=== PATIENT | female | born 1955 | race Caucasian/White ===

== ENCOUNTER 2021-05-12 00:34 | Outpatient (CLI) | payer MEDICARE | END 2021-05-12 00:35 | disposition critical access hospital (66) | LOC: EMS 00:34 | DX: R42 Dizziness and giddiness (principal); M62.89 Other specified disorders of muscle; R19.7 Diarrhea, unspecified | CPT/HCPCS: A0425; A0427 ==

== ENCOUNTER 2021-05-12 01:08 | Emergency (ER) | payer MEDICARE, OTHER ==
[2021-05-12] MEDS ORDERED: SODIUM CHLORIDE 0.9% 1,000 ML IV STA (02:15)
[2021-05-12 02:51] LABS: BASOPHILS # (AUTO) 0.1 10^3/uL (0.0-0.1); BASOPHILS % (AUTO) 0.7 %; EOSINOPHILS # (AUTO) 0.1 10^3/uL (0.0-0.7); EOSINOPHILS % (AUTO) 0.8 %; HGB - HEMOGLOBIN 12.8 g/dL (12.0-16.0); LYMPHOCYTES # (AUTO) 1.6 10^3/uL (1.5-3.5); LYMPHOCYTES % (AUTO) 17.3 %; MEAN CORPUSCULAR HEMOGLOBIN 30.3 pg (27.0-31.0); MEAN CORPUSCULAR HGB CONC 33.7 g/dL (32.0-36.0); MEAN CORPUSCULAR VOLUME 89.8 fL (81.0-99.0); MONOCYTES # (AUTO) 0.7 10^3/uL (0.0-1.0); MONOCYTES % (AUTO) 7.8 %; NEUTROPHILS # (AUTO) 6.5 10^3/uL (1.5-6.6); NEUTROPHILS % (AUTO) 73.2 %; PLT - PLATELET COUNT 298 10^3/uL (130-450); RED BLOOD COUNT 4.23 10^6/uL (4.20-5.40); RED CELL DISTRIBUTION WIDTH 12.8 % (12.0-15.0); WHITE BLOOD COUNT 8.9 x10^3/uL (4.8-10.8)
[2021-05-12 03:09] LABS: ALBUMIN/GLOBULIN RATIO 1.5 (1.0-2.2); BILIRUBIN,TOTAL 0.8 mg/dL (0.2-1.0); CALCIUM 8.9 mg/dL (8.5-10.3); CREATININE 0.7 mg/dL (0.4-1.0); MAGNESIUM 2.3 mg/dL (1.7-2.8); POTASSIUM 3.1 mmol/L (3.5-5.0); TOTAL PROTEIN 6.7 g/dL (6.7-8.2)
[2021-05-12] MEDS ORDERED: POTASSIUM CHLORIDE 10 MEQ CAPSULE PO STA (03:30)
--- NOTE | 2021-05-12 03:31 | ED Physician Documentation ---
PD HPI ALTERED MENTAL STATUS - Stated complaint Stated Complaint: MED REACTION, DIZZY - Chief complaint Chief Complaint: Neuro - History obtained from History obtained from: Patient, EMS - History of Present Illness Timing - onset: Today Timing - details: Abrupt onset, Still present, Waxing and waning Quality / character: Other (feeling of lightheaded without vertigo, and some muscle cramps in arms and legs, mild tingling. She feels it is side effect of Sertraline started 3 weeks ago at half dose and increased to full dose 2 weeks ago.) Associated symptoms: No: Fever, Headache, Stiff neck, Dyspnea, NVD Contributing factors: Recent med change. No: Recent illness, Intoxicated Basline status: Alert and oriented X 3, Ambulatory Similar symptoms before: Has not had sx before Recently seen: Clinic (3 weeks ago) Review of Systems Constitutional: denies: Fever, Chills Nose: denies: Rhinorrhea / runny nose, Congestion Throat: denies: Sore throat Cardiac: denies: Chest pain / pressure Respiratory: denies: Cough GI: reports: Nausea. denies: Abdominal Pain, Vomiting, Diarrhea Skin: denies: Rash, Lesions Musculoskeletal: denies: Neck pain, Back pain Neurologic: denies: Focal weakness, Near syncope (but did feeling lightheaded) PD PAST MEDICAL HISTORY - Past Medical History Past Medical History: Yes Cardiovascular: None Respiratory: Asthma Endocrine/Autoimmune: HyPOthyroidism GI: Diverticulitis Psych: Depression - Past Surgical History Past Surgical History: Yes - Present Medications Home Medications: Ambulatory Orders Medication Instructions Recorded Confirmed Budesonide [Pulmicort] 2 puffs IH DAILY 04/18/14 05/12/21 Levothyroxine Sodium 50 mcg PO DAILY 04/18/14 05/12/21 Salmeterol Xinafoate [Serevent 2 puffs IH DAILY 04/18/14 05/12/21 Diskus] Potassium Citrate [Potassium 10 meq PO DAILY #14 05/12/21 Citrate ER] Sertraline [Zoloft] 50 mg PO DAILY 05/12/21 05/12/21 - Allergies Allergies/Adverse Reactions: Allergies Allergy/AdvReac Type Severity Reaction Status Date / Time azithromycin Allergy Severe Hives Verified 05/12/21 01:53 Latex, Natural Rubber Allergy Mild Rash Verified 05/12/21 01:53 erythromycin base AdvReac Severe Respiratory Verified 04/18/14 01:57 [Erythromycin Base] - Social History Does the pt smoke?: No Smoking Status: Never smoker Does the pt drink ETOH?: No Does the pt have substance abuse?: No - Immunizations Immunizations are current?: Yes - POLST Patient has POLST: No PD ED PE NORMAL - Vitals Vital signs reviewed: Yes - General General: Alert and oriented X 3, No acute distress, Well developed/nourished - HEENT HEENT: Moist mucous membranes, Pharynx benign - Neck Neck: Supple, no meningeal sign, No adenopathy - Cardiac Cardiac: RRR, No murmur - Respiratory Respiratory: Clear bilaterally - Abdomen Abdomen: Soft, Non tender - Derm Derm: Normal color, Warm and dry - Extremities Extremities: Normal ROM s pain, No edema, No calf tenderness / cord - Neuro Neuro: Alert and oriented X 3, No motor deficit, Normal speech Eye Opening: Spontaneous Motor: Obeys Commands Verbal: Oriented GCS Score: 15 - Psych Psych: Normal mood Results - Vitals Vitals: Vital Signs - 24 hr 05/12/21 05/12/21 05/12/21 01:10 01:30 02:30 Temperature 36.9 C Heart Rate 66 66 58 L Respiratory 16 16 14 Rate Blood Pressure 189/78 H 167/75 H 153/66 H O2 Saturation 98 99 05/12/21 05/12/21 03:00 03:57 Temperature 36.6 C Heart Rate 61 69 Respiratory 17 18 Rate Blood Pressure 153/66 H 156/71 H O2 Saturation 100 100 Oxygen O2 Source Room air - Labs Labs: Laboratory Tests 05/12/21 05/12/21 02:45 02:45 WBC 8.9 RBC 4.23 Hgb 12.8 Hct 38.0 MCV 89.8 MCH 30.3 MCHC 33.7 RDW 12.8 Plt Count 298 MPV 9.0 Neut # (Auto) 6.5 Lymph # (Auto) 1.6 Braxton # (Auto) 0.7 Eos # (Auto) 0.1 Baso # (Auto) 0.1 Absolute Nucleated RBC 0.00 Nucleated RBC % 0.0 Sodium 137 Potassium 3.1 L Chloride 102 Carbon Dioxide 27 Anion Gap 8.0 BUN 16 Creatinine 0.7 Estimated GFR (MDRD) 84 L Glucose 113 H Calcium 8.9 Magnesium 2.3 Total Bilirubin 0.8 AST 23 ALT 14 Alkaline Phosphatase 66 Total Protein 6.7 Albumin 4.0 Globulin 2.7 Albumin/Globulin Ratio 1.5 Lipase 25 PD MEDICAL DECISION MAKING - ED course Complexity details: considered differential (does sound likely to be med side effect. Consider underhydration or lytes process to enhance the symptoms. ), d/w patient Departure - Departure Disposition: 01 Home, Self Care Clinical Impression: Medication side effects, Hypokalemia Condition: Stable Record reviewed to determine appropriate education?: Yes Follow-Up: LALITHA CORRALES [Primary Care Provider] - Prescriptions: Potassium Citrate [Potassium Citrate ER] 10 meq PO DAILY #14 Comments: I would agree with you that your symptoms sound likely to be side effects of your medication. It does not sound like an allergy per se but just side effects. As such you do not need to stop the medication but just reduce the dose at this point. I would suggest holding your dose for /Wednesday. I would then continue the medication at half dose. Contact your primary care provider and discuss whether to maintain at the half dose or go back up to the full dose after a week or 2. Your potassium level is bit low at 3.1. This may have enhanced some of the muscle spasms or such. I would suggest a potassium supplement daily for the next 1-1/2 to 2 weeks. This can be [id number] potassium supplements or I did write a prescription for one instead. Discharge Date/Time: 05/12/21 03:57
[2021-05-12 03:58] VITALS: BP 156/71
== END 2021-05-12 03:57 | disposition home or self-care (01) ==
LOC: EDUNIT# → ED 01:08
DX: E87.6 Hypokalemia (principal); T50.905A Adverse effect of unspecified drugs, medicaments and biological substances, initial encounter
CPT/HCPCS: 36415; 80053; 83690; 83735; 85025; 99284; A9270

== ENCOUNTER 2024-05-25 09:59 | Outpatient (CLI) | payer MEDICARE | END 2024-05-25 23:59 | disposition EMS.NT | LOC: EMS 09:59 | DX: R22.1 Localized swelling, mass and lump, neck (principal); M54.2 Cervicalgia ==